=== PATIENT | male | born 1990 | race Caucasian/White ===

== ENCOUNTER 2019-01-19 23:25 | Emergency (ER) | payer OTHER ==
[~2019-01-19] VITALS: Ht 180 cm; Wt 56.0 kg
--- NOTE | 2019-01-19 23:36 | ED Lower Extremity ---
General Stated Complaint: FOOT INJ Source: patient, family, EMS Exam Limitations: no limitations History of Present Illness Date Seen by Provider: Jan 19, 2019 Time Seen by Provider: 23:21 Initial Comments Patient presents to ER by EMS with chief complaint just prior to arrival he was in his power chair and ran over his left foot over the top of it. He then thinks she backed over it again a second time. He's having modest pain that he says is tolerable but he would take Tylenol. He rates as a 6 out of 10. 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 He has sensation in his toes. 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 Allergies and Home Medications Allergies Coded Allergies: No Known Drug Allergies (Unverified , 01/19/19) Patient Home Medication List Home Medication List Reviewed: Yes Review of Systems Constitutional: No chills, No fever EENTM: No ear discharge, No ear pain Respiratory: No cough, No short of breath Past Cixapfl-Ygbblz-Mpamat Hx Patient Social History Alcohol Use: Occasionally Uses Recreational Drug Use: No Smoking Status: Never a Smoker Physical Exam Vital Signs Vital Signs - First Documented 01/19/19 23:25 Temp 36.2 Pulse 114 Resp 20 B/P (MAP) 146/93 (110) Pulse Ox 99 O2 Delivery Room Air Capillary Refill : Height, Weight, BMI Height: '" Weight: lbs. oz. kg; BMI Method: General Appearance: mild distress, thin HEENT: PERRL/EOMI, pharynx normal Neck: full range of motion, normal inspection Cardiovascular: normal peripheral pulses, regular rate, rhythm Legs: bilateral leg non-tender, bilateral leg normal inspection, bilateral leg normal range of motion, bilateral leg no evidence of injury Knees: bilateral knee non-tender, bilateral knee normal inspection, bilateral knee normal range of motion, bilateral knee no evidence of injury Ankles: bilateral ankle non-tender, bilateral ankle normal inspection, bilateral ankle normal range of motion, bilateral ankle no evidence of injury Feet: right foot non-tender; bilateral foot normal inspection, bilateral foot normal range of motion; right foot no evidence of injury; left foot bone tenderness (second and third metatarsal tender to palpation) Neurologic/Psychiatric: alert, normal mood/affect, oriented x 3 Skin: normal color, warm/dry Progress/Results/Core Measures Results/Orders My Orders Orders - MEAGHAN CISSE Acetaminophen Tablet (Tylenol Tablet) (01/19/19 23:45) Foot, Left, 3 Views (01/19/19 23:33) Medications Given in ED Current Medications Medications Dose Ordered Sig/Susan Route Start Time Stop Time Status Last Admin Dose Admin Acetaminophen 1,000 mg ONCE ONCE PO 01/19/19 23:45 01/19/19 23:46 DC 01/19/19 23:54 1,000 MG Vital Signs/I&O 01/19/19 23:25 Temp 36.2 Pulse 114 Resp 20 B/P (MAP) 146/93 (110) Pulse Ox 99 O2 Delivery Room Air Diagnostic Imaging Diagonstic Imaging: Xray Plain Films/CT/US/NM/MRI: other (left foot) Comments No acute osseous abnormality. Thin bone Reviewed: Reviewed by Me Departure Impression Primary Impression: Foot pain, left Disposition: HOME, SELF-CARE Condition: Stable Departure-Patient Inst. Decision time for Depature: 00:22 Referrals: NO,LOCAL PHYSICIAN (PCP) Primary Care Physician TRAY MANCIA MD (Family) Primary Care Physician Patient Instructions: Foot Sprain (DC) Add. Discharge Instructions: I cannot detect a fracture in your foot today. It's always possible there could be a small, occult fracture. If you continue to have significant pain 7-10 days later then you should follow-up with primary care for reexamination. Tylenol 1000 mg every 8 hours in addition to ibuprofen 800 mg every 8 hours as necessary for pain. For the first 2 days you can ice the foot down for 20 minutes every 4-6 hours while awake. Elevate the foot and keep it wrapped with an Mike wrap or compression. MEAGHAN CISSE Jan 19, 2019 23:36
[2019-01-19] MEDS ORDERED: ACETAMINOPHEN 500 MG TAB (TYLENOL) PO ONE (23:45)
[2019-01-20 00:54] VITALS: BP 123/80
--- NOTE | 2019-01-20 06:22 | Diagnostic Imaging Report ---
INDICATION: Left foot pain AP, oblique and lateral views of the left foot are obtained. No acute fracture or malalignment is identified. There is mild metatarsus primus varus with hallux valgus and associated joint space narrowing at the first metatarsophalangeal joint. There is no abnormal lytic or sclerotic focus. IMPRESSION: Mild bunion deformity and great toe degenerative change. Otherwise no acute abnormality is present. Dictated by: Dictated on workstation # [id number]
== END 2019-01-20 01:20 | disposition home or self-care (01) ==
LOC: EDUNIT# 23:25 → ER 23:27
DX: M79.672 Pain in left foot (principal); W23.0XXA Caught, crushed, jammed, or pinched between moving objects, initial encounter
CPT/HCPCS: 73630

== ENCOUNTER 2019-05-07 17:30 | Emergency (ER) | payer OTHER ==
[~2019-05-07] VITALS: Ht 175 cm; Wt 56.8 kg
--- NOTE | 2019-05-07 18:19 | ED General ---
General Chief Complaint: General Problems/Pain Stated Complaint: INJ NECK/SHOULDER Nursing Triage Note: PT ARRIVED IN SOFT COLLAR WITH COMPLAINTS OF NECK, BACK, LEFT SHOULDER PAIN. STATES HIS PHYSICAL THERAPIST - PEYTON CAME TO HIS HOUSE AND THINKS HE IS HAVING A CERVICAL ISSUE AND TOLD HIM TO COME TO THE ER AFTER WORKING ON THESE AREAS FOR HIM. Nursing Sepsis Screen: No Definite Risk Source of Information: Patient Exam Limitations: No Limitations History of Present Illness Date Seen by Provider: May 07, 2019 Time Seen by Provider: 17:55 Initial Comments To ER, a grandfather, grandmother, mother with reports of neck and shoulder pain. On Sunday of last week, 8 days ago he was at home outside when a heavy board door fell off the hinges leaning up against him putting pressure on the le ft shoulder and left head causing him to keep his head to the right for about 15 minutes before his grandfather arrive home It and was able to remove the door from him. He had no pain initially, beginning Sunday he developed some neck and shoulder pain as well as headaches. He's been working with physical therapist Blade Frost who came to the house and did some stretches and massage, expecting improvement but has had no improvement yet. He is on baclofen, he's been wearing a soft cervical collar for support but denies much improvement. 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 Timing/Duration: 1 Week Severity: Moderate Associated Systoms: Headaches Allergies and Home Medications Allergies Coded Allergies: No Known Drug Allergies (Unverified , 01/19/19) Patient Home Medication List Home Medication List Reviewed: Yes Review of Systems Review of Systems Constitutional: see HPI EENTM: see HPI Respiratory: no symptoms reported Cardiovascular: no symptoms reported Genitourinary: no symptoms reported Musculoskeletal: no symptoms reported Skin: no symptoms reported Psychiatric/Neurological: No Symptoms Reported Hematologic/Lymphatic: No Symptoms Reported Immunological/Allergic: no symptoms reported Past Uxbdook-Mseidx-Bbplwt Hx Patient Social History Alcohol Use: Denies Use Alcohol Beverage of Choice: Beer Recreational Drug Use: No Smoking Status: Never a Smoker 2nd Hand Smoke Exposure: No Recent Foreign Travel: No Contact w/Someone Who Travel: No Recent Infectious Disease Expo: No Immunizations Up To Date Tetanus Booster (TDap): Unknown PED Vaccines UTD: Yes Past Medical History Surgeries: Yes Orthopedic Respiratory: No Cardiac: No Neurological: Yes (FRIEDREICH'S ATAXIA) Genitourinary: No Gastrointestinal: No Musculoskeletal: No Endocrine: No HEENT: No Cancer: No Psychosocial: No Integumentary: No Blood Disorders: No Adverse Reaction/Blood Tranf: No Physical Exam Vital Signs Vital Signs - First Documented 05/07/19 17:43 Temp 36.7 Pulse 95 Resp 16 B/P (MAP) 125/81 (96) Pulse Ox 97 O2 Delivery Room Air Capillary Refill : Less Than 3 Seconds Height, Weight, BMI Height: '" Weight: lbs. oz. kg; 18.00 BMI Method: General Appearance: No Apparent Distress, WD/WN, Other (globally ataxic with a bit of dysarthria ) Eyes: Bilateral Eye Normal Inspection, Bilateral Eye PERRL, Bilateral Eye EOMI HEENT: PERRL/EOMI, TMs Normal, Normal ENT Inspection Neck: Full Range of Motion, Normal Inspection Respiratory: Normal Breath Sounds, No Accessory Muscle Use, No Respiratory Distress Cardiovascular: Regular Rate, Rhythm, Normal Peripheral Pulses Gastrointestinal: Normal Bowel Sounds, Non Tender, Soft Extremity: Normal Capillary Refill, Normal Inspection, Normal Range of Motion Neurologic/Psychiatric: Alert, Oriented x3, No Motor/Sensory Deficits Skin: Normal Color, Warm/Dry Progress/Results/Core Measures Suspected Sepsis Recent Fever Within 48 Hours: No Infection Criteria Present: None New/Unexplained Altered Menta: No Sepsis Screen: No Definite Risk SIRS Temperature: Pulse: 95 Respiratory Rate: 16 Blood Pressure 125 /81 Mean: 96 Results/Orders My Orders Orders - GISSELL SEVILLA APRN Ct Head/Cervical Spine Wo (05/07/19 18:12) Vital Signs/I&O 05/07/19 17:43 Temp 36.7 Pulse 95 Resp 16 B/P (MAP) 125/81 (96) Pulse Ox 97 O2 Delivery Room Air Capillary Refill : Less Than 3 Seconds Blood Pressure Mean: 96 Diagnostic Imaging Diagonstic Imaging: CT Comments NAME: CRISTAL BACA [facility] REC#: [id number] PT STATUS: REG ER : 1990 PHYSICIAN: GISSELL SEVILLA APRN ADMIT DATE: 05/07/19/ER Draft Date of Exam:05/07/19 CT HEAD/CERVICAL SPINE WO PROCEDURE: CT head and CT cervical spine without contrast. TECHNIQUE: Multiple contiguous axial images were obtained through the brain and cervical spine without the use of intravenous contrast. Sagittal and coronal reformations through the cervical spine were then performed. Auto Exposure Controls were utilized during the CT exam to meet ALARA standards for radiation dose reduction. INDICATION: Head and neck pain. COMPARISON: MRI brain 10/17/2010. FINDINGS: CT HEAD: No intracranial hemorrhage, mass effect, hydrocephalus or extra-axial fluid collections. No CT evidence of a territorial infarction. Osseous structures are intact. The visualized paranasal sinuses and mastoids are clear. CT cervical spine: Normal alignment. Vertebral body heights are preserved. No fractures. No substantial spondylotic change. No evidence of spinal canal narrowing on soft tissue windows. The visualized paravertebral soft tissues are unremarkable. IMPRESSION: Negative head and cervical spine CT. Dictated on workstation # [id number] Dict: 05/07/19 1850 Trans: 05/07/19 1855 [id number] Interpreted by: HILARY RAMOS MD Electronically signed by: Departure Impression Primary Impression: Cervical myofascial strain Qualified Codes: S16.1XXA - Strain of muscle, fascia and tendon at neck level, initial encounter Disposition: HOME, SELF-CARE Condition: Stable Departure-Patient Inst. Decision time for Depature: 18:58 Referrals: NO,LOCAL PHYSICIAN (PCP) Primary Care Physician TRAY MANCIA MD (Family) Primary Care Physician Patient Instructions: Cervical Muscle Strain Copy Copies To 1: TRAY MANCIA MD, PETER J APRN May 07, 2019 18:19
--- NOTE | 2019-05-07 18:55 | Diagnostic Imaging Report ---
PROCEDURE: CT head and CT cervical spine without contrast. TECHNIQUE: Multiple contiguous axial images were obtained through the brain and cervical spine without the use of intravenous contrast. Sagittal and coronal reformations through the cervical spine were then performed. Auto Exposure Controls were utilized during the CT exam to meet ALARA standards for radiation dose reduction. INDICATION: Head and neck pain. COMPARISON: MRI brain 10/17/2010. FINDINGS: CT HEAD: No intracranial hemorrhage, mass effect, hydrocephalus or extra-axial fluid collections. No CT evidence of a territorial infarction. Osseous structures are intact. The visualized paranasal sinuses and mastoids are clear. CT cervical spine: Normal alignment. Vertebral body heights are preserved. No fractures. No substantial spondylotic change. No evidence of spinal canal narrowing on soft tissue windows. The visualized paravertebral soft tissues are unremarkable. IMPRESSION: Negative head and cervical spine CT. Dictated by: Dictated on workstation # [id number]
[2019-05-07 19:20] VITALS: BP 132/74
== END 2019-05-07 19:20 | disposition home or self-care (01) ==
LOC: EDUNIT# 17:30 → ER 17:31
DX: S16.1XXA Strain of muscle, fascia and tendon at neck level, initial encounter (principal); X50.0XXA Overexertion from strenuous movement or load, initial encounter; Y92.009 Unspecified place in unspecified non-institutional (private) residence as the place of occurrence of the external cause
CPT/HCPCS: 70450; 72125

== ENCOUNTER 2021-06-23 11:02 | Emergency (ER) | payer OTHER ==
[~2021-06-23] VITALS: Ht 180 cm; Wt 59.0 kg
--- NOTE | 2021-06-23 12:48 | ED Fall/Injury ---
General Chief Complaint: Trauma-Non Activation Stated Complaint: FALL - BACK PAIN Nursing Triage Note: SEE TRIAGE History of Present Illness Date Seen by Provider: Jun 23, 2021 Time Seen by Provider: 11:30 Initial Comments 31-year-old male patient is wheelchair-bound and was in his bathroom, he was sitting on the toilet when he had a muscle spasm causing him to fall forward. He twisted his upper body landing on his posterior right shoulder, thoracic and lumbar spine. He also has a small occipital contusion. He denies any loss of consciousness. He was assisted back to his wheelchair by his mom and brother. He was given Tylenol 1000 mg prior to arrival. Mother reports his mentation and physical abilities are at baseline for him. He denies any complaints of pain at this time. He has erythema to his lower spine, noted scoliosis with prominence and erythema. No skin abrasions or lacerations. History of Chon ataxia. Location Injury Occurred: HOME Occurred: this morning Injuries/Pain Location: head, neck, back, pelvis Context: other Loss of Consciousness: no loss of consciousness Associated Symptoms (Fall): No Abdominal Pain, No Chest Pain, No Confusion, No Dizziness, No Headache, No Lightheadedness; Muscle Spasms (chronic); No Nausea/Vomiting; Neck Pain (chronic); No Ringing in Ears, No Seizures, No Shortness of Air, No Slurred Speech; Trouble Walking (chronic); No Vision Changes Allergies and Home Medications Allergies Coded Allergies: No Known Drug Allergies (Unverified , 01/19/19) Patient Home Medication List Home Medication List Reviewed: Yes Tramadol HCl (Tramadol HCl) 50 Mg Tablet, 50 MG PO Q6H PRN for PAIN Prescribed by: RPABHU OSORIO on 06/23/21 1415 Review of Systems Review of Systems Constitutional: no symptoms reported, see HPI, weakness (chronic) Eyes: No Symptoms Reported, See HPI Ears, Nose, Mouth, Throat: no symptoms reported, see HPI Respiratory: no symptoms reported Cardiovascular: no symptoms reported, see HPI Gastrointestinal: no symptoms reported, see HPI Musculoskeletal: see HPI, joint pain (right shoulder, minimal); No joint swelli ng; muscle pain (generalized), neck pain (chronic) All Other Systems Reviewed Negative Unless Noted: Yes Past Kzjvodn-Tgkeve-Tudrmy Hx Patient Social History Tobacco Use?: No Substance use?: No Alcohol Use?: No Pt feels they are or have been: No Immunizations Up To Date Tetanus Booster (TDap): Unknown PED Vaccines UTD: Yes First/Initial COVID19 Vaccinat: 2020 Second COVID19 Vaccination Rex: 2020 COVID19 Vaccine Teenage Program Director: MARIELAlexandra Past Medical History Surgery/Hospitalization HX: [facility] ATTAXIA Surgeries: Yes Orthopedic Respiratory: No Cardiac: No Neurological: Yes (FRIEDREICH'S ATAXIA) Genitourinary: No Gastrointestinal: No Musculoskeletal: No Endocrine: No HEENT: No Cancer: No Psychosocial: No Integumentary: No Blood Disorders: No Adverse Reaction/Blood Tranf: No Family Medical History Reviewed Nursing Family Hx Physical Exam Vital Signs Vital Signs - First Documented 06/23/21 11:05 Temp 36.3 Pulse 88 Resp 18 B/P (MAP) 124/82 (96) Pulse Ox 99 Capillary Refill : Less Than 3 Seconds Height, Weight, BMI Height: '" Weight: lbs. oz. kg; 18.00 BMI Method: General Appearance: WD/WN, no apparent distress HEENT: PERRL/EOMI, normal ENT inspection, TMs normal, pharynx normal, other (superficial abrasian to head, occipital. Trace tenderness. ) Neck: supple, normal inspection; No tender lateral, No tender midline Cardiovascular: normal peripheral pulses, regular rate, rhythm, no edema Respiratory: chest non-tender, lungs clear, normal breath sounds Gastrointestinal: normal bowel sounds, non tender, soft Back: No muscle spasm; vertebral tenderness, other (Noted scoliosis with prominence of right scapula. Erythem to lower lumbar and posterior pelvis. Nontender, but he does have chornic changes in sensation. ) Neurologic/Psychiatric: alert, normal mood/affect, oriented x 3 [place] Coma Score Best Eye Response: (4) Open Spontaneously Best Verbal Response: (5) Oriented Best Motor Response: (6) Obeys Commands Francine Total: 15 Progress/Results/Core Measures Results/Orders My Orders Orders - PRABHU OSORIO Ct Head/Cervical Spine Wo (06/23/21 12:43) Ct Chest/Abdomen/Pelvis W (06/23/21 ) Iohexol Injection (Omnipaque 350 Mg/Ml 1 (06/23/21 13:15) Received Contrast (Hold Metformin- Contr (06/23/21 13:15) Ns (Ivpb) (Sodium Chloride 0.9% Ivpb Bag (06/23/21 13:15) Medications Given in ED Current Medications Medications Dose Ordered Sig/Susan Route Start Time Stop Time Status Last Admin Dose Admin Iohexol 100 ml ONCE ONCE IV 06/23/21 13:15 06/23/21 13:16 DC 06/23/21 13:19 75 ML Sodium Chloride 100 ml ONCE ONCE IV 06/23/21 13:15 06/23/21 13:16 DC 06/23/21 13:19 80 ML Vital Signs/I&O 06/23/21 06/23/21 11:05 14:24 Temp 36.3 36.3 Pulse 88 88 Resp 18 18 B/P (MAP) 124/82 (96) 124/82 Pulse Ox 99 99 Blood Pressure Mean: 96 Progress Progress Note : Time: 11:30 Progress Note Patient seen and evaluated, discussed options to assess for any fractures or internal injuries. Patient and mother okay with obtaining CTs. Discussed with Dr. Beck which images would be best, based on his assessment. Pt declined need for pain medicine at this time. Patient is transferred from his wheelchair to ED bed with minimal assistance from his mother. [address] shows no fractures or dislocations. Patient continues to have no pain that he feels requires medication. Discharge instructions and return precautions discussed with the patient and his family. All questions answered. Stressed that he will be more uncomfortable and possibly stiff tomorrow, he attends PT 3 times a week. Tomorrow is his upper body lifting day but he will take it easy. He has a massage scheduled for tomorrow, for chronic neck pain. Mother and grandmother report that he can have extra assistance at home, if needed. Diagnostic Imaging Diagonstic Imaging: CT Plain Films/CT/US/NM/MRI: c-spine, head Comments NAME: PHUONG,CRISTAL S MED REC#: [id number] PT STATUS: REG ER : 1990 PHYSICIAN: PRABHU OSORIO ADMIT DATE: 06/23/21/ER Draft Date of Exam:06/23/21 CT HEAD/CERVICAL SPINE WO CLINICAL INDICATION: Patient paralyzed from waist down. Patient is status post fall from toilet. Patient has contusion to occipital area. EXAM: Head CT without IV contrast with sagittal and coronal reformations. Axial CT scan of the cervical spine with sagittal and coronal reformations. Auto Exposure Controls were utilized during the CT exam to meet ALARA standards for radiation dose reduction. COMPARISON: CT scan of the head and cervical spine without contrast dated 05/07/2019. FINDINGS: Head CT: There is motion artifact limiting evaluation of the maxillofacial structures. There is no evidence of acute cerebral infarct, intracranial hemorrhage, or gross mass effect. The brain parenchymal volume appears appropriate for patient's age. There is normal abbasi-white matter distinction. There is no significant midline shift or herniation. There is no evidence of hydrocephalus. The basal cisterns are unremarkable. The skull, extracranial soft tissue, and orbits are unremarkable. There is mild mucosal thickening involving the right maxillary sinus. Temporal bones show no significant abnormality. Cervical spine: There is no acute cervical spine fracture or dislocation. There are stable mild chronic compression deformities involving the upper aspects of the T7 and T1 vertebrae. There are small degenerative spurs involving the cervical spine anteriorly. There is no significant bony central canal or neural foramen narrowing. There is no significant neck soft tissue abnormality. Visualized upper lung miranda are clear. IMPRESSION: 1: There is no acute intracranial process. There is no intracranial hemorrhage. There is no skull or maxillofacial fracture. 2: There is no acute cervical spine fracture or dislocation. Stable mild chronic compression deformity involving the upper endplate of the C7 and T1 vertebrae. Dictated on workstation # [id number] Dict: 06/23/21 1317 Trans: 06/23/21 1330 [id number] Interpreted by: RENE MARTIN MD Electronically signed by: Reviewed: Reviewed by Pa Diagonstic Imaging: CT Plain Films/CT/US/NM/MRI: chest, abdomen, pelvis Comments NAME: [facility] REC#: [id number] PT STATUS: REG ER : 1990 PHYSICIAN: PRABHU OSORIO ADMIT DATE: 06/23/21/ER Draft Date of Exam:06/23/21 CT CHEST/ABDOMEN/PELVIS W PROCEDURE: CT chest, abdomen, and pelvis with contrast. TECHNIQUE: Multiple contiguous axial images were obtained through the chest, abdomen, and pelvis after the administration of intravenous contrast. Auto Exposure Controls were utilized during the CT exam to meet ALARA standards for radiation dose reduction. INDICATION: Trauma, fall with right shoulder and low back pain as well as spine pain. No prior studies are available for comparison. CT CHEST: No definite mediastinal hematoma or great vessel injury is identified. No pericardial or pleural fluid is detected. No pulmonary contusion or pneumothorax is detected. No definite rib fracture is identified. There is right convexity thoracic scoliotic curvature. No thoracic spine fracture is identified. CT abdomen and pelvis: Small circumscribed low-attenuation lesion right lobe of liver is noted suggestive of a small cyst. No focal liver or splenic laceration is identified. Gallbladder is unremarkable. There is no biliary ductal dilatation. The pancreas, adrenal glands and kidneys are unremarkable. Aorta is nonaneurysmal. Bowel loops are normal caliber. There is no free fluid or evidence of hemoperitoneum. The bladder is unremarkable. A left convexity lumbar scoliotic curvature is noted. No fractures are seen. IMPRESSION: Unremarkable CT of the chest, abdomen and pelvis. No visceral injury is seen. No acute bony abnormality is detected. Dictated on workstation # [id number] Dict: 06/23/21 1336 Trans: 06/23/21 1342 [id number] Interpreted by: YISSEL BECK MD Electronically signed by: Reviewed: Reviewed by Me, Discussed w/Radiologist Departure Impression Primary Impression: Fall Qualified Codes: W19.XXXA - Unspecified fall, initial encounter Additional Impressions: Wheelchair dependent Contusion Qualified Codes: S30.0XXA - Contusion of lower back and pelvis, initial encounter Disposition: 01 HOME, SELF-CARE Condition: Improved Departure-Patient Inst. Decision time for Depature: 13:40 Referrals: TRAY MANCIA MD (PCP/Family) Primary Care Physician Patient Instructions: Contusion (DC), Minor Head Injury (DC) Add. Discharge Instructions: Continue with activity as tolerated. Use pillows to keep pressure off back/pelvis when in wheelchair or bed. Take 10 deep breaths and cough 3-4 times, every 1-2 hours, while awake. Alternate between ibuprofen 600 mg and Tylenol 650 mg every 4 hours for pain or discomfort. Apply ice alternating with heat to the contusions for 20 minutes every 2 hours as needed. Follow-up with your primary care provider if symptoms are not improving or worsen. Return to the emergency department for new, urgent healthcare needs. All discharge instructions reviewed with patient and/or family. Voiced understanding. Scripts Tramadol HCl (Tramadol HCl) 50 Mg Tablet 50 MG PO Q6H PRN for PAIN, #20 TAB 0 Refills Prov: PRABHU OSORIO 06/23/21 Copy Copies To 1: TRAY MANCIA MD, AMY ARNP Jun 23, 2021 12:48
[2021-06-23] MEDS ORDERED: HOLD METFORMIN - RECEIVED CONTRAST 20 ML VIAL IV SCH (13:15)
[2021-06-23] MEDS ORDERED: NS 100 ML (IVPB) BAG IV ONE (13:15)
[2021-06-23] MEDS ORDERED: IOHEXOL 350 MG/ML 100 ML (OMNIPAQUE 350) VIAL IV ONE (13:15)
--- NOTE | 2021-06-23 13:30 | Diagnostic Imaging Report ---
CLINICAL INDICATION: Patient paralyzed from waist down. Patient is status post fall from toilet. Patient has contusion to occipital area. EXAM: Head CT without IV contrast with sagittal and coronal reformations. Axial CT scan of the cervical spine with sagittal and coronal reformations. Auto Exposure Controls were utilized during the CT exam to meet ALARA standards for radiation dose reduction. COMPARISON: CT scan of the head and cervical spine without contrast dated 05/07/2019. FINDINGS: Head CT: There is motion artifact limiting evaluation of the maxillofacial structures. There is no evidence of acute cerebral infarct, intracranial hemorrhage, or gross mass effect. The brain parenchymal volume appears appropriate for patient's age. There is normal abbasi-white matter distinction. There is no significant midline shift or herniation. There is no evidence of hydrocephalus. The basal cisterns are unremarkable. The skull, extracranial soft tissue, and orbits are unremarkable. There is mild mucosal thickening involving the right maxillary sinus. Temporal bones show no significant abnormality. Cervical spine: There is no acute cervical spine fracture or dislocation. There are stable mild chronic compression deformities involving the upper aspects of the T7 and T1 vertebrae. There are small degenerative spurs involving the cervical spine anteriorly. There is no significant bony central canal or neural foramen narrowing. There is no significant neck soft tissue abnormality. Visualized upper lung miranda are clear. IMPRESSION: 1: There is no acute intracranial process. There is no intracranial hemorrhage. There is no skull or maxillofacial fracture. 2: There is no acute cervical spine fracture or dislocation. Stable mild chronic compression deformity involving the upper endplate of the C7 and T1 vertebrae. Dictated by: Dictated on workstation # [id number]
--- NOTE | 2021-06-23 13:43 | Diagnostic Imaging Report ---
PROCEDURE: CT chest, abdomen, and pelvis with contrast. TECHNIQUE: Multiple contiguous axial images were obtained through the chest, abdomen, and pelvis after the administration of intravenous contrast. Auto Exposure Controls were utilized during the CT exam to meet ALARA standards for radiation dose reduction. INDICATION: Trauma, fall with right shoulder and low back pain as well as spine pain. No prior studies are available for comparison. CT CHEST: No definite mediastinal hematoma or great vessel injury is identified. No pericardial or pleural fluid is detected. No pulmonary contusion or pneumothorax is detected. No definite rib fracture is identified. There is right convexity thoracic scoliotic curvature. No thoracic spine fracture is identified. CT abdomen and pelvis: Small circumscribed low-attenuation lesion right lobe of liver is noted suggestive of a small cyst. No focal liver or splenic laceration is identified. Gallbladder is unremarkable. There is no biliary ductal dilatation. The pancreas, adrenal glands and kidneys are unremarkable. Aorta is nonaneurysmal. Bowel loops are normal caliber. There is no free fluid or evidence of hemoperitoneum. The bladder is unremarkable. A left convexity lumbar scoliotic curvature is noted. No fractures are seen. IMPRESSION: Unremarkable CT of the chest, abdomen and pelvis. No visceral injury is seen. No acute bony abnormality is detected. Dictated by: Dictated on workstation # [id number]
[2021-06-23] MEDS ORDERED: TRM50T PO (14:15)
[2021-06-23 14:24] VITALS: BP 124/82
== END 2021-06-23 14:24 | disposition home or self-care (01) ==
LOC: EDUNIT# 11:02 → ER 11:03
DX: S30.0XXA Contusion of lower back and pelvis, initial encounter (principal); S00.91XA Abrasion of unspecified part of head, initial encounter; Z99.3 Dependence on wheelchair; W18.30XA Fall on same level, unspecified, initial encounter
CPT/HCPCS: 70450; 71260; 72125; 74177

== ENCOUNTER 2022-09-11 14:22 | Emergency (ER) | payer OTHER ==
[~2022-09-11 14:22] MED LIST: TRM50T PO
--- NOTE | 2022-09-11 15:23 | ED Abdominal Pain ---
General Chief Complaint: Abdominal/GI Problems Stated Complaint: CONSTIPATION X6 DAYS Nursing Triage Note: PT TO RM 9 BY WC WITH C/O NO BM X6 DAYS. PT STATES HE HAS TRIED MILK OF MAG, STOOL SOFTENERS, LAXATIVES AND PRUNE JUICE WITHOUT SUCCESS Source of Information: Patient Exam Limitations: No Limitations History of Present Illness Date Seen by Provider: September 11, 2022 Time Seen by Provider: 15:20 Initial Comments Patient is a 32-year-old male with a history of Friedreich ataxia wheelchair- bound who presents to the ED with family for constipation. Last bowel movement was 6 days ago. History of constipation. He states he has been constipated for near 5 days. Typically drinks milk of magnesia, Colace, high-fiber diet and drinks fluids and typically has a bowel movement. Patient takes trospium chloride for overactive bladder. States when he does take the medication may lead to constipation. Denies of any vomiting. Generalized abdominal discomfort over the past 2 days. Denies fever, chills, dysuria, chest pain, cough or shortness of breath. Family's concern for potential obstruction. Allergies and Home Medications Allergies Coded Allergies: No Known Drug Allergies (Unverified , 01/19/19) Patient Home Medication List Home Medication List Reviewed: Yes Tramadol HCl (Tramadol HCl) 50 Mg Tablet, 50 MG PO Q6H PRN for PAIN Prescribed by: PRABHU OSORIO on 06/23/21 1415 Review of Systems Review of Systems Constitutional: No chills, No diaphoresis, No malaise, No weakness EENTM: No Double Vision, No Eye Pain Respiratory: Denies Cough, Denies Orthopnea Cardiovascular: Denies Chest Pain, Denies Edema Gastrointestinal: Abdominal Pain, Constipated; Denies Nausea, Denies Vomiting Genitourinary: Denies Burning, Denies Discharge Musculoskeletal: No back pain, No joint pain Skin: No change in color, No change in hair/nails All Other Systems Reviewed Negative Unless Noted: Yes Past Spsrkrm-[id number]-Fbcnpi Hx Patient Social History Tobacco Use?: No Use of E-Cig and/or Vaping dev: No Substance use?: No Alcohol Use?: No Pt feels they are or have been: No Immunizations Up To Date Tetanus Booster (TDap): Unknown PED Vaccines UTD: Yes First/Initial COVID19 Vaccinat: 2021 Second COVID19 Vaccination Rex: 2020 Third COVID19 Vaccination Date: 2020 Past Medical History Surgery/Hospitalization HX: [facility] Surgeries: Yes Orthopedic Respiratory: No Cardiac: No Neurological: Yes ([facility]RE[facility] ATAXIA) Genitourinary: No Gastrointestinal: No Musculoskeletal: No Endocrine: No HEENT: No Cancer: No Psychosocial: No Integumentary: No Blood Disorders: No Adverse Reaction/Blood Tranf: No Physical Exam Vital Signs Vital Signs - First Documented 09/11/22 14:58 Temp 35.9 Pulse 100 Resp 18 B/P (MAP) 131/94 (106) Pulse Ox 100 O2 Delivery Room Air Capillary Refill : Height/Weight/BMI Height: '" Weight: lbs. oz. 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, no motor/sensory deficits, motor weakness (Lower extremity bilateral) Skin: normal color, warm/dry Progress/Results/Core Measures Results/Orders My Orders Orders - JU MORALES Abdomen, Flat & Upright/Decub (09/11/22 15:17) Bisacodyl Suppository (Dulcolax Supposit (09/11/22 15:30) Na Phos/Na Biphos Enema (Fleet Enema Bridger (09/11/22 16:30) Medications Given in ED Current Medications Medications Dose Ordered Sig/Susan Route Start Time Stop Time Status Last Admin Dose Admin Bisacodyl 20 mg ONCE ONCE ID 09/11/22 15:30 09/11/22 15:31 DC 09/11/22 16:44 20 MG Sodium Biphosphate/ Sodium Phosphate 1 ea ONCE ONCE ID 09/11/22 16:30 09/11/22 16:31 DC 09/11/22 16:54 1 EA Vital Signs/I&O 09/11/22 09/11/22 14:58 17:03 Temp 35.9 35.9 Pulse 100 90 Resp 18 18 B/P (MAP) 131/94 (106) 122/87 Pulse Ox 100 100 O2 Delivery Room Air Room Air Blood Pressure Mean: 106 Departure Communication (PCP) Patient is a 32-year-old male with Frederich atxia. Who presents to the ED with family for concern for constipation. Last bowel movement 6 days ago. History of constipation but typically does not last as long. No vomiting, fever, chills. Patient has been using Colace, fluids, bottle of milk of magnesia without much improvement. Patient is concern for obstruction. States he has been passing gas. differential diagnosis constipation, obstruction. Abdominal x-ray did not show any evidence of obstruction. Stool notesd. No evidence of fecal loading. attempted a Dulcolax suppository here. Discussed patient he may have a bowel movement within the next hour. Patient states he will go home at this time. Discussed continue hydration. Discussed Metamucil. May continue Dulcolax or MiraLAX. If no bowel movement may consider Fleet enema or milk of magnesia. Follow-up with your primary care physician 2 to 3 days for reevaluation. Patient does have a roommate who can help transferring him as needed or help him with enema or suppository. Impression Primary Impression: Constipation Disposition: 01 HOME, SELF-CARE Condition: Stable Departure-Patient Inst. Decision time for Depature: 16:55 Referrals: TRAY MANCIA MD (PCP/Family) Primary Care Physician Patient Instructions: Constipation, Adult (DC) Add. Discharge Instructions: Recommend taking Dulcolax 1-2 tabs daily for bowel movement. May also drink 1 pack of MiraLAX to help with bowel movement as well. If no improvement may drink a bottle of milk of magnesia as needed to help with bowel movement. If no improvement recommend Fleet enema to help with bowel movement. Recommend [place] mucil and high-fiber diet. Continue drinking plenty fluids. Follow-up your PCP in 2 to 3 days for reevaluation. If worsening pain, vomiting you need to return back to ED All discharge instructions reviewed with patient and/or family. Voiced understanding. JU MORALES September 11, 2022 15:23
[2022-09-11] MEDS ORDERED: BISACODYL 10 MG SUPP (DULCOLAX) PR ONE (15:30)
--- NOTE | 2022-09-11 15:57 | Diagnostic Imaging Report ---
Indication: Constipation, pain. Findings: Supine and upright radiographs do show some stool in the rectosigmoid but the fecal load is not grossly pathologic. There is some air within the remaining nondilated colon and small amounts of air within nondistended small bowel. No air-fluid levels or free gas. There is reciprocal S type thoracolumbar scoliotic curvature chronic. Impression: No gross overloading of the colon stool load, no focal impaction or obstruction. No free air. Reciprocal S type thoracolumbar scoliotic curvature as a chronic finding noted. Dictated by: Dictated on workstation # [id number]
[2022-09-11] MEDS ORDERED: FLEET ENEMA ADULT 1 EA BTL PR ONE (16:30)
[2022-09-11 17:03] VITALS: BP 122/87
== END 2022-09-11 17:00 | disposition home or self-care (01) ==
LOC: EDUNIT# 14:22 → ER 14:25
DX: K59.00 Constipation, unspecified (principal)
CPT/HCPCS: 74019